=== PATIENT | female | born 1985 | race Caucasian/White ===

== ENCOUNTER 2023-08-04 13:47 | Emergency (ER) | payer OTHER ==
[~2023-08-04] VITALS: Ht 157.5 cm; Wt 81.7 kg
[2023-08-04 13:53] VITALS: BP 124/76; PULSE 69; TEMP 97.7; O2SAT 99
[2023-08-04] MEDS ORDERED: KETOROLAC 30 MG/ML VIAL IVP ONE (14:20)
[2023-08-04] MEDS: ONDANSETRON 4 MG/2 ML VIAL IVP ONE (14:54)
[2023-08-04] MEDS: ACETAMINOPHEN EXTRA STRENGTH 500 MG TAB PO ONE (14:55)
[2023-08-04] MEDS: KETOROLAC 30 MG/ML VIAL IVP ONE (14:56)
[2023-08-04] MEDS: NACL 0.9% 1,000 ML IV ONE (14:57)
[2023-08-04 15:07] LABS: BASOPHILS % (AUTO) 0.5 % (0.0-2.0); EOSINOPHILS # (AUTO) 0.1 K/uL (0-0.4); EOSINOPHILS % (AUTO) 0.9 % (0.0-4.0); HEMATOCRIT 39.7 % (36-48); HEMOGLOBIN 13.3 g/dL (12.0-16.0); LYMPHOCYTES # (AUTO) 1.3 K/uL (2.5-16.5); LYMPHOCYTES % (AUTO) 12.1 % (20.5-51.1); MEAN CORPUSCULAR HEMOGLOBIN 29 pg (27-31); MEAN CORPUSCULAR HGB CONC 34 g/dL (33-37); MONOCYTES # (AUTO) 0.5 K/uL (0.8-1.0); MONOCYTES % (AUTO) 4.6 % (1.7-9.3); NEUTROPHILS # (AUTO) 8.9 K/uL (1.8-7.7); NEUTROPHILS % (AUTO) 81.9 % (42.2-75.2); PLATELET COUNT (AUTO) 349 K/uL (140-450); RED BLOOD CELL COUNT(AUTO) 4.56 MIL/uL (4.20-5.40); RED CELL DISTRIBUTION WIDTH 13.6 % (11.6-13.7); WHITE BLOOD COUNT (AUTO) 10.8 K/uL (4.8-10.8)
[2023-08-04 15:30] LABS: ANION GAP 12.1 (8-16); CARBON DIOXIDE 29.4 mmol/L (21-32); CREATININE 0.6 mg/dL (0.6-1.3); POTASSIUM 3.5 mmol/L (3.5-5.1)
[2023-08-04 15:33] LABS: FLU A ANTIGEN negative (NEGATIVE); FLU B ANTIGEN NEGATIVE (NEGATIVE)
[2023-08-04 15:43] LABS: ALANINE AMINOTRANSFERASE 45 U/L (12-78); ALBUMIN 4.2 g/dL (3.4-5.0); ALKALINE PHOSPHATASE 100 U/L (50-136); ASPARTATE AMINOTRANSFERASE 23 U/L (15-37); BILIRUBIN,DIRECT 0.1 mg/dL (0.0-0.3); LIPASE 28 U/L (16-77); TOTAL BILIRUBIN 0.3 mg/dL (0.0-1.0); TOTAL PROTEIN, SERUM 8.5 g/dL (6.4-8.2)
[2023-08-04 18:26] VITALS: BP 110/51; PULSE 69; RESP 18; TEMP 98.3; O2SAT 97
== END 2023-08-04 18:26 | disposition home or self-care (01) ==
LOC: MED 13:47
DX: B34.9 Viral infection, unspecified (principal); Z20.822 Contact with and (suspected) exposure to COVID-19; R07.9 Chest pain, unspecified; R42 Dizziness and giddiness; Z79.899 Other long term (current) drug therapy
CPT/HCPCS: 36415; 71045; 80048; 80076; 81002; 81025; 82948; 83690; 84484; 85025; 87426; 87804; 93005; 96361; 96374; 96375; 99285; J1885; J2405; J7030; Q0092